=== PATIENT | female | born 1980 | race Caucasian/White ===

== ENCOUNTER 2020-05-21 09:25 | Emergency (ER) | payer BC, MEDICAID ==
[~2020-05-21] VITALS: Ht 165.1 cm; Wt 120.5 kg
[2020-05-21 09:30] VITALS: Ht 165.1 cm; Wt 120.5 kg
[2020-05-21] MEDS ORDERED: LISINOPRIL-HCT1 EAC4 PO (09:31)
[2020-05-21 10:08] LABS: BASOPHILS 0.6 % (0-2); EOSINOPHILS 1.4 % (0-7); HEMATOCRIT 43.5 % (36.0-48.0); HEMOGLOBIN 14.1 g/dL (12-16); IMMATURE GRANULOCYTES 0.2 % (0-5); LYMPHOCYTES 22.5 % (15-50); MCH 28.6 pg (26.0-34.0); MCHC 32.4 g/dL (31.0-37.0); MCV 88.2 fL (80.0-100.0); MEAN PLATELET VOLUME 9.6 fL (7.4-10.4); MONOCYTES 8.1 % (2-11); NEUTROPHILS 67.2 % (40-80); PLATELET COUNT 327 10x3/uL (130-400); RBC 4.93 10x6/uL (4.00-5.40); RDW 13.5 % (11.5-14.5); WBC 8.4 10x3/uL (4.8-10.8)
[2020-05-21 10:15] LABS: BILIRUBIN NEGATIVE (NEGATIVE); GLUCOSE NEGATIVE (NEGATIVE); KETONE NEGATIVE (NEGATIVE); NITRITE NEGATIVE (NEGATIVE); SPECIFIC GRAVITY 1.015 (1.005-1.020); UROBILINOGEN NORMAL (NORMAL)
[2020-05-21 10:17] LABS: CALC OSMOLALITY 277 mosm/kg (275-300); CALCIUM 8.8 mg/dL (8.5-10.1); CARBON DIOXIDE 31.1 mmol/L (21.0-32.0); CHLORIDE - SERUM 101 mmol/L (98-107); GLUCOSE 103 mg/dL (74-106); POTASSIUM - SERUM 3.9 mmol/L (3.5-5.1); SODIUM 138 mmol/L (136-145); UREA NITROGEN 18 mg/dL (7-18); eGFR NON AFRICAN AMERICAN 66 mL/min (90-120)
[2020-05-21 10:19] LABS: HCG URINE NEGATIVE (NEGATIVE)
[2020-05-21 10:30] LABS: ALBUMIN 3.8 g/dL (3.4-5.0); ALKALINE PHOSPHATASE 81 U/L (30-120); ALT (SGPT) 21 U/L (10-68); AMYLASE - SERUM 55 U/L (25-115); BILIRUBIN - TOTAL 0.59 mg/dL (0.2-1.3); LIPASE 122 U/L (73-393); PROTEIN - SERUM 7.6 g/dL (6.4-8.2); TROPONIN-I < 0.017 ng/mL (0.000-0.060)
[2020-05-21] MEDS ORDERED: IBUPROFEN800 MG PO (12:00)
[2020-05-21] MEDS ORDERED: CYCLOBENZAPRINE10 MG PO (12:00)
[2020-05-21] MEDS ORDERED: ACETAMINOPHEN500 M1 PO (12:00)
[2020-05-21 12:57] VITALS: BP 131/60
== END 2020-05-21 12:57 | disposition home or self-care (01) ==
LOC: D.ER 09:25
PROVIDERS: Family Medicine
DX: R10.11 Right upper quadrant pain (principal); I10 Essential (primary) hypertension; M54.9 Dorsalgia, unspecified; Z87.442 Personal history of urinary calculi

== ENCOUNTER 2021-01-25 12:36 | Emergency (ER) | payer BC, MEDICAID ==
[~2021-01-25] VITALS: Ht 165.1 cm; Wt 122.7 kg
[~2021-01-25 12:36] MED LIST: ACETAMINOPHEN500 M1 PO; CYCLOBENZAPRINE10 MG PO; IBUPROFEN800 MG PO; LISINOPRIL-HCT1 EAC4 PO
[2021-01-25 12:42] VITALS: Ht 165.1 cm; Wt 122.7 kg
[2021-01-25 13:09] LABS: BASOPHILS 0.6 % (0-2); EOSINOPHILS 0.7 % (0-7); HEMATOCRIT 39.3 % (36.0-48.0); HEMOGLOBIN 12.9 g/dL (12-16); IMMATURE GRANULOCYTES 0.3 % (0-5); LYMPHOCYTE ABS# 1.47 10x3/uL (1.18-3.74); LYMPHOCYTES 14.4 % (15-50); MCH 27.6 pg (26.0-34.0); MCHC 32.8 g/dL (31.0-37.0); MCV 84.2 fL (80.0-100.0); MEAN PLATELET VOLUME 9.4 fL (7.4-10.4); MONOCYTES 6.4 % (2-11); NEUTROPHIL ABS# 7.92 10x3/uL (1.56-6.13); NEUTROPHILS 77.6 % (40-80); PLATELET COUNT 309 10x3/uL (130-400); RBC 4.67 10x6/uL (4.00-5.40); RDW 13.9 % (11.5-14.5); WBC 10.2 10x3/uL (4.8-10.8)
[2021-01-25 13:17] LABS: ANION GAP 12.6 mmol/L (8-16); CALCIUM 8.8 mg/dL (8.5-10.1); CARBON DIOXIDE 28.3 mmol/L (21.0-32.0); POTASSIUM - SERUM 3.9 mmol/L (3.5-5.1)
[2021-01-25 13:23] LABS: BILIRUBIN - TOTAL 0.33 mg/dL (0.2-1.3)
[2021-01-25 14:36] LABS: APTT 32.3 SECONDS (22.8-39.4); D-DIMER-QUANTITATIVE 0.27 ug/mLFEU (0.20-0.54); INR 1.22 (0.85-1.17); PROTIME 14.3 SECONDS (11.6-15.0)
[2021-01-25] MEDS ORDERED: LISINOPRIL-HCT1 EAC4 PO (15:30)
[2021-01-25 15:57] VITALS: BP 147/95
== END 2021-01-25 15:35 | disposition home or self-care (01) ==
LOC: D.ER 12:36
PROVIDERS: Emergency Medicine
DX: M79.604 Pain in right leg (principal); I10 Essential (primary) hypertension